=== PATIENT | female | born 1990 | race Caucasian/White ===

== ENCOUNTER 2017-06-05 20:07 | Emergency (ER) | payer MEDICAID, OTHER ==
[2017-06-05 20:13] VITALS: BP 123/59
[2017-06-05] MEDS ORDERED: Ondansetron 4 MG Tab.DIS PO ONE (20:33)
[2017-06-05] MEDS ORDERED: fentaNYL 100 MCG/2 ML SDV IM ONE (20:33)
--- NOTE | 2017-06-05 20:50 | EDM.PDOC ---
ED HPI GENERAL MEDICAL PROBLEM - General Chief Complaint: General Stated Complaint: LEFT ARM PAIN/NUMBNESS Time Seen by Provider: 06/05/17 20:20 Source of Information: Reports: Patient History Limitations: Reports: No Limitations - History of Present Illness INITIAL COMMENTS - FREE TEXT/NARRATIVE: This patient is a 26 year old patient that presents to the ER. Patient is 2 months post delivery. The patient reports that this morning she had a global headache with some nausea. She reports she has had this type of headache before and they resolve after some Tylenol and described as mild. Patient reports that also about 1pm she developed pain to the left of her neck, left postieor shoulder and pain with burning sensation down the left arm. She reports that she thinks her arm feels cool. The patient reports that after this pain developed she took Tylenol, her headache had resolved completely, but he arm pain did not. 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 Patient reports that was much more painful than what this pain is. The patient denies any known injury. The patient has control implant in the left arm. Patient reports that movement of the neck, left shoulder, and left arm increases her pain. The patient is able to abduct and adduct the left arm, but has increase in pain to the posterior shoulder with this motion. The pain is easily manipulated with ROM of the left shoulder. Pulses +2, cap refill <2 sec, sensory/motor function intact, neurovascular intact. Patient has no unilateral weaknesses. Stroke score 0. I will xray left shoulder whee pain location is located and US for DVT due to control, location of implant, and recent delivery. Onset: Today Onset Date: 06/05/17 Onset Time: 13:00 Duration: Hour(s): (7) Location: Reports: Upper Extremity, Left Severity: Moderate Improves with: Reports: None Worsens with: Reports: Movement Associated Symptoms: Reports: Headaches (Resolved earlier today from Tylenol). 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 Left Arm Pain Score (Numeric/FACES): 6 - Related Data Allergies Allergy/AdvReac Type Severity Reaction Status Date / Time gabapentin Allergy Severe Syncope Verified 06/05/17 20:15 amoxicillin [Amoxicillin] Allergy Intermediate Rash Verified 06/05/17 20:15 Penicillins Allergy Intermediate Rash Verified 06/05/17 20:15 Home Meds: Home Meds Albuterol [Proventil HFA] 2 puff INH BID PRN 09/17/16 [History] Etonogestrel [Nexplanon] 68 mg SQ ASDIRECTED 06/05/17 [History] Past Medical History - Past Health History Medical/Surgical History: Denies Medical/Surgical History HEENT History: Reports: Impaired Vision Respiratory History: Reports: Asthma 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 OB/BYN History: GRAVID 1 PARA 1 - Past Surgical History HEENT Surgical History: Reports: Oral Surgery Musculoskeletal Surgical History: Reports: Ganglion Cyst Social & Family History - Family History Family Medical History: Noncontributory - Tobacco Use Smoking Status *Q: Current Every Day Smoker Years of Tobacco use: 11 Packs/Tins Daily: 0.5 Used Tobacco, but Quit: No Second Hand Smoke Exposure: Yes - Caffeine Use Caffeine Use: Reports: Soda - Alcohol Use Days Per Week of Alcohol Use: 0 Number of Drinks Per Day: 0 Total Drinks Per Week: 0 - Recreational Drug Use Recreational Drug Use: No Drug Use in Last 12 Months: No - Living Situation & Occupation Living situation: Reports: with Family ED ROS GENERAL - Review of Systems Review Of Systems: See Below Constitutional: Reports: No Symptoms HEENT: Reports: No Symptoms Respiratory: Reports: No Symptoms Cardiovascular: Reports: No Symptoms Endocrine: Reports: No Symptoms GI/Abdominal: Reports: No Symptoms : Reports: No Symptoms Musculoskeletal: Reports: Neck Pain (left lateral ), Shoulder Pain (left posterior) Skin: Reports: No Symptoms Neurological: Reports: Headache (global, resolved. ) Psychiatric: Reports: No Symptoms Hematologic/Lymphatic: Reports: No Symptoms Immunologic: Reports: No Symptoms ED EXAM, GENERAL - Physical Exam Exam: See Below Exam Limited By: No Limitations General Appearance: Alert, WD/WN, No Apparent Distress Eye Exam: Bilateral Eye: EOMI, Normal Inspection, PERRL Ears: Normal External Exam, Normal Canal, Hearing Grossly Normal, Normal TMs Ear Exam: Bilateral Ear: Auricle Normal, Canal Normal, TM normal Nose: Normal Inspection, Normal Mucosa, No Blood Throat/Mouth: Normal Inspection, Normal Lips, Normal Teeth, Normal Gums, Normal Oropharynx, Normal Voice, No Airway Compromise Head: Atraumatic, Normocephalic Neck: Normal Inspection, Supple, Full Range of Motion (painful to the left lateral side and shoulder. ), Tender Lateral (left). No: Limited Range of Motion, Tender Midline Respiratory/Chest: No Respiratory Distress, Lungs Clear, Normal Breath Sounds, No Accessory Muscle Use Cardiovascular: Normal Peripheral Pulses, Regular Rate, Rhythm, No Edema, No Gallop, No JVD, No Murmur, No Rub Peripheral Pulses: 2+: Radial (L), Radial (R) Back Exam: Normal Inspection, Full Range of Motion. No: Decreased Range of Motion, Muscle Spasm, Paraspinal Tenderness, Vertebral Tenderness Extremities: Normal Inspection, No Pedal Edema, Normal Capillary Refill, Limited Range of Motion (due to pain. Able to do abduction and adduction, but with pain to left posterior shoulder. ). No: Pedal Edema, Slow Capillary Refill , Increased Warmth, Mottled, Pallor, Redness Neurological: Alert, Oriented, CN II-XII Intact, Normal Cognition, Normal Gait, No Motor/Sensory Deficits Psychiatric: Normal Affect, Normal Mood Skin Exam: Warm, Dry, Intact, Normal Color, No Rash Lymphatic: No Adenopathy Course - Vital Signs Last Recorded V/S: Last Vital Signs Temp 98.1 F 06/05/17 20:08 Pulse 86 06/05/17 20:08 Resp 16 06/05/17 20:08 BP 123/59 L 06/05/17 20:08 Pulse Ox 100 06/05/17 20:08 - Orders/Labs/Meds Orders: Active Orders 24 hr Category Date Time Status Shoulder Comp Lt [CR] Stat Exams 06/05/17 20:32 Taken VL Duplex Upr Ext Veins Ltd Lt [US] Stat Exams 06/05/17 20:29 Ordered Meds: Medications Discontinued Medications Generic Name Dose Route Start Last Admin Trade Name Freq PRN Reason Stop Dose Admin Cyclobenzaprine HCl 10 mg 06/05/17 21:44 Flexeril PO 06/05/17 21:45 ONETIME ONE Fentanyl 50 mcg 06/05/17 20:33 06/05/17 20:44 Sublimaze IM 06/05/17 20:34 50 mcg ONETIME ONE Administration Methylprednisolone Sodium Succinate 125 mg 06/05/17 21:44 Solu-Medrol IVPUSH 06/05/17 21:45 NOW STA Ondansetron HCl 4 mg 06/05/17 20:33 06/05/17 20:44 Zofran Odt PO 06/05/17 20:34 4 mg ONETIME ONE Administration - Radiology Interpretation Free Text/Narrative:: Left Shoulder: No fx, no dislocation. Left Upper Extremity US: NO DVT Departure - Departure Time of Disposition: 21:41 Disposition: Home, Self-Care 01 Condition: Good Clinical Impression: Cervical radiculopathy Shoulder sprain Qualifiers: Encounter type: initial encounter Shoulder sprain type: unspecified sprain Laterality: left Qualified Code(s): S43.402A - Unspecified sprain of left shoulder joint, initial encounter - Discharge Information Instructions: Cervical Radiculopathy, [id number], Shoulder Sprain Referrals: PCP,None [Primary Care Provider] - Forms: ED Department Discharge Additional Instructions: Followup with your primary care provider Return to the ER for worsening of condition or any emergent concerns Prednisone 20mg 1 pill twice a day for 5 days #10 no refill [place] 5/325mg 1-2 pills every 4-6 hours as needed for pain #15 no refill Flexeril 10mg 1 pill three times a day as needed for muscle spasm #15 no refill - My Orders Last 24 Hours: My Active Orders 06/05/17 20:29 VL Duplex Upr Ext Veins Ltd Lt [US] Stat 06/05/17 20:32 Shoulder Comp Lt [CR] Stat - Assessment/Plan Last 24 Hours: My Active Orders 06/05/17 20:29 VL Duplex Upr Ext Veins Ltd Lt [US] Stat 06/05/17 20:32 Shoulder Comp Lt [CR] Stat Plan: PLEASE SEE RN NOTE FOR PFSH.
[2017-06-05] MEDS ORDERED: Cyclobenzaprine 10 MG Tab PO ONE (21:44)
[2017-06-05] MEDS ORDERED: methylPREDNISolone Sodium Succinate 125 MG/2 ML SDV IM STA (21:47)
[2017-06-05] MEDS: methylPREDNISolone Sodium Succinate 125 MG/2 ML SDV IVPUSH STA ×2 (21:52→22:08)
== END 2017-06-05 22:04 | disposition home or self-care (01) ==
LOC: CC.ED 20:07
DX: S43.402A Unspecified sprain of left shoulder joint, initial encounter (principal); J45.909 Unspecified asthma, uncomplicated; M54.12 Radiculopathy, cervical region; F17.210 Nicotine dependence, cigarettes, uncomplicated; Z88.1 Allergy status to other antibiotic agents; Z88.0 Allergy status to penicillin; Z88.8 Allergy status to other drugs, medicaments and biological substances; X58.XXXA Exposure to other specified factors, initial encounter
CPT/HCPCS: 73030; 93971; 96372; 99284; A9270; J2930; J3010

== ENCOUNTER 2017-07-10 02:45 | Emergency (ER) | payer MEDICAID ==
[2017-07-10 04:50] VITALS: BP 142/78
--- NOTE | 2017-07-12 09:28 | EDM.PDOC ---
ED HPI GENERAL MEDICAL PROBLEM - General Chief Complaint: Fever Stated Complaint: fever Time Seen by Provider: 07/10/17 03:10 Source of Information: Reports: Patient History Limitations: Reports: No Limitations - History of Present Illness INITIAL COMMENTS - FREE TEXT/NARRATIVE: Patient presents to ER with concerns of a sore throat. Spiked a high fever of 103 as well. "feels like my throat is closing off". She started noting discomfort yesterday but wasn't as severe, running low grade temps. She has had mild sinus congestion. No ear pain. Feels her lymph nodes are swollen. Patient was concerned as she was worried the "closing off" would affect her breathing. Onset: Gradual Duration: Hour(s): Location: Reports: Head Quality: Reports: Throbbing Severity: Moderate Improves with: Reports: None Associated Symptoms: Reports: Fever/Chills, Headaches. 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 - Related Data Allergies Allergy/AdvReac Type Severity Reaction Status Date / Time gabapentin Allergy Severe Syncope Verified 07/10/17 04:44 amoxicillin [Amoxicillin] Allergy Intermediate Rash Verified 07/10/17 04:44 Penicillins Allergy Intermediate Rash Verified 07/10/17 04:44 Home Meds: Home Meds Albuterol [Proventil HFA] 2 puff INH BID PRN 09/17/16 [History] Etonogestrel [Nexplanon] 68 mg SQ ASDIRECTED 06/05/17 [History] Past Medical History - Past Health History Medical/Surgical History: Denies Medical/Surgical History HEENT History: Reports: Impaired Vision Respiratory History: Reports: Asthma 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 OB/BYN History: GRAVID 1 PARA 1 - Past Surgical History HEENT Surgical History: Reports: Oral Surgery Musculoskeletal Surgical History: Reports: Ganglion Cyst Social & Family History - Family History Family Medical History: Noncontributory - Tobacco Use Smoking Status *Q: Current Every Day Smoker Years of Tobacco use: 11 Packs/Tins Daily: 0.5 Used Tobacco, but Quit: No Second Hand Smoke Exposure: Yes - Caffeine Use Caffeine Use: Reports: Soda - Alcohol Use Days Per Week of Alcohol Use: 0 Number of Drinks Per Day: 0 Total Drinks Per Week: 0 - Recreational Drug Use Recreational Drug Use: No Drug Use in Last 12 Months: No - Living Situation & Occupation Living situation: Reports: with Family ED ROS ENT - Review of Systems Review Of Systems: See Below Constitutional: Reports: Fever, Chills, Malaise, Weakness. Denies: Decreased Appetite HEENT: Reports: Throat Pain, Throat Swelling. Denies: Ear Pain, Rhinitis, Sinus Problem Respiratory: Denies: Shortness of Breath, Wheezing, Cough Cardiovascular: Denies: Chest Pain, Edema, Lightheadedness Endocrine: Reports: Fatigue GI/Abdominal: Denies: Abdominal Pain, Constipation, Diarrhea, Nausea, Vomiting : Reports: No Symptoms Musculoskeletal: Reports: No Symptoms Skin: Reports: No Symptoms Neurological: Reports: No Symptoms ED EXAM, ENT - Physical Exam Exam: See Below Exam Limited By: No Limitations General Appearance: Alert, WD/WN, No Apparent Distress Ears: Normal External Exam, Normal TMs Nose: Normal Inspection, Normal Mucousa, No Blood Mouth/Throat: Tonsillar Erythema, Tonsillar Exudates, Tonsillar Swelling Head: Normocephalic Neck: Normal Inspection, Supple, Lymphadenopathy (L), Lymphadenopathy (R) Respiratory/Chest: No Respiratory Distress, Lungs Clear, Normal Breath Sounds Cardiovascular: Regular Rate, Rhythm GI/Abdominal: Normal Bowel Sounds, Soft, Non-Tender Extremities: Normal Inspection, Normal Capillary Refill Neurological: Alert, Oriented Psychiatric: Normal Affect, Normal Mood Skin: Warm, Dry Course - Vital Signs Last Recorded V/S: Last Vital Signs Temp 100.3 F 07/10/17 04:46 Pulse 122 H 07/10/17 04:46 Resp 18 07/10/17 04:46 BP 142/78 H 07/10/17 04:46 Pulse Ox 98 07/10/17 04:46 Departure - Departure Time of Disposition: 04:00 Disposition: Home, Self-Care 01 Condition: Fair Clinical Impression: Tonsillitis - Discharge Information Referrals: Provider,Unknown [Ordering Only Provider] - Forms: ED Department Discharge Additional Instructions: 1. Push fluids 2. Alternate tylenol and ibuprofen for fever or discomfort. 3. Ceftin as directed 4. Notify us if not seeing improvement in a 2-3 days\\ 5. Contact us with any questions
== END 2017-07-10 03:35 | disposition home or self-care (01) ==
LOC: CC.ED 02:45
DX: J03.90 Acute tonsillitis, unspecified (principal); J45.909 Unspecified asthma, uncomplicated; F17.210 Nicotine dependence, cigarettes, uncomplicated; Z88.0 Allergy status to penicillin; Z88.1 Allergy status to other antibiotic agents; Z88.8 Allergy status to other drugs, medicaments and biological substances
CPT/HCPCS: 96372; 99282

== ENCOUNTER 2019-01-14 17:39 | Emergency (ER) | payer OTHER, MEDICAID ==
[2019-01-14 18:13] VITALS: BP 132/87
[2019-01-14 18:19] LABS: CHLORIDE,CL 103 mEq/L (98-106); SODIUM,NA 139 mEq/L (136-145)
--- NOTE | 2019-01-14 18:20 | EDM.PDOC ---
ED HPI GENERAL MEDICAL PROBLEM - General Chief Complaint: Neuro Symptoms/Deficits Stated Complaint: FAINTED EARLIER/NOW DIZZY Time Seen by Provider: 01/14/19 18:12 Source of Information: Reports: Patient History Limitations: Reports: No Limitations - History of Present Illness INITIAL COMMENTS - FREE TEXT/NARRATIVE: Cuca is a 28 year old female who presents to the ED with c/o "just feeling weird." She reports she was working out with her outdoor fitness trainer this morning and "passed out." Sleep Medicine Physician reports she was alert and talking throughout, but she does not remember this. She reports this was at 0930 this morning. She reports that since that time she has just "felt weird." She feels like everything is moving slowly and she doesn't remember the day. She reports she hasn't eaten or drank much today. Does have somewhat of an upset stomach. She denies any nausea , vomiting, diarrhea, dysuria, urinary frequency/urgency, loss of consciousness. No history of seizures. Significant other reports she has just seemed "down in the dumps all day" but denies noticing any confusion. Is very anxious and tearful at time of examination. Onset: Today Onset Date: 01/14/19 Onset Time: 09:30 Location: Reports: Abdomen Associated Symptoms: Reports: Confusion, Loss of Appetite, Malaise, Weakness. Denies: Nausea/Vomiting Abdominal Pain Score (Numeric/FACES): 2 - Related Data Allergies Allergy/AdvReac Type Severity Reaction Status Date / Time gabapentin Allergy Severe Syncope Verified 01/14/19 17:57 amoxicillin [Amoxicillin] Allergy Intermediate Rash Verified 01/14/19 17:57 Penicillins Allergy Intermediate Rash Verified 01/14/19 17:57 Home Meds: Home Meds Albuterol [Proventil HFA] 2 puff INH BID PRN 09/17/16 [History] Etonogestrel [Nexplanon] 68 mg SQ ASDIRECTED 06/05/17 [History] L.acidoph,Paracasei, B.lactis [Probiotic] 1 each PO DAILY 01/14/19 [History] Nitrofurantoin Monohyd/M-Cryst [Macrobid 100 mg Capsule] 100 mg PO BID #10 capsule 01/14/19 [Rx] busPIRone [Buspar] 15 mg PO BID 01/14/19 [History] Past Medical History - Past Health History Medical/Surgical History: Denies Medical/Surgical History HEENT History: Reports: Impaired Vision Respiratory History: Reports: Asthma 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 COLORER HIDES AND SKINS History: GRAVID 1 PARA 1 - Past Surgical History HEENT Surgical History: Reports: Oral Surgery Musculoskeletal Surgical History: Reports: Ganglion Cyst Social & Family History - Family History Family Medical History: Noncontributory - Tobacco Use Smoking Status *Q: Current Every Day Smoker Years of Tobacco use: 14 Packs/Tins Daily: 0.5 - Caffeine Use Caffeine Use: Reports: Coffee, Energy Drinks, Soda - Recreational Drug Use Recreational Drug Use: No - Living Situation & Occupation Living situation: Reports: with Family ED ROS GENERAL - Review of Systems Review Of Systems: ROS reveals no pertinent complaints other than HPI. ED EXAM, NEURO - Physical Exam Exam: See Below Exam Limited By: No Limitations General Appearance: Alert, WD/WN, Anxious Eye Exam: Bilateral Eye: EOMI, Normal Fundi, Normal Inspection, PERRL Head Exam: Atraumatic, Normocephalic Neck: Normal Inspection, Supple, Non-Tender, Full Range of Motion Respiratory/Chest: No Respiratory Distress, Lungs Clear, Normal Breath Sounds, No Accessory Muscle Use, Chest Non-Tender Cardiovascular: Normal Peripheral Pulses, Regular Rate, Rhythm, No Edema, No Gallop, No JVD, No Murmur, No Rub GI/Abdominal: Normal Bowel Sounds, Soft, Non-Tender, Tender (LUQ) Neurological: Alert, Normal Dorsiflexion, CN II-XII Intact, Normal Plantar Flexion, Normal Gait, Normal Reflexes, No Motor/Sensory Deficits, Oriented x 3 Back Exam: Normal Inspection, Full Range of Motion. No: CVA Tenderness (L), CVA Tenderness (R) Extremities: Normal Inspection, Normal Range of Motion, Non-Tender, No Pedal Edema, Normal Capillary Refill Psychiatric: Anxious, Tearful Skin Exam: Warm, Dry, Intact, Normal Color, No Rash, Other (atopic dermatitis to bilateral wrists and lower extremities) Course - Vital Signs Last Recorded V/S: Last Vital Signs Temp 99.3 F 01/14/19 17:45 Pulse 90 01/14/19 17:45 Resp 16 01/14/19 17:45 BP 132/87 01/14/19 18:13 Pulse Ox 99 01/14/19 17:45 - Orders/Labs/Meds Orders: Active Orders 24 hr Category Date Time Status Head wo Cont [CT] Stat Exams 01/14/19 17:55 Taken CULTURE URINE [RM] Stat Lab 01/14/19 18:16 Results Labs: Laboratory Tests 01/14/19 01/14/19 01/14/19 Range/Units 18:03 18:03 18:03 WBC 10.7 H (5.0-10.0) 10^3/uL RBC 5.30 (4.00-5.50) 10^6/uL Hgb 15.4 (12.0-16.0) g/dL Hct 45.0 (37.0-47.0) % MCV 84.9 (82.0-94.0) fL MCH 29.1 (27.0-32.0) pg MCHC 34.2 (33.0-38.0) g/dL RDW Coeff of Jeronimo 13.3 (11.0-15.0) % Plt Count 263 (150-400) 10^3/uL Neut % (Auto) 62.4 (35-85) % Lymph % (Auto) 28.7 (10-55) % [place] % (Auto) 7.5 (0-16) % Eos % (Auto) 1.0 (0-5) % Baso % (Auto) 0.4 (0-3) % Neut # (Auto) 6.64 (1.80-7.00) 10^3/uL Lymph # (Auto) 3.06 (1.00-4.80) 10^3/uL [place] # (Auto) 0.80 (0.00-0.80) 10^3/uL Eos # (Auto) 0.11 (0.00-0.45) 10^3/uL Baso # (Auto) 0.04 10^3/uL Sodium 139 (136-145) mEq/L Potassium 4.5 (3.5-5.0) mEq/L Chloride 103 (98-106) mEq/L Carbon Dioxide 29 (21-32) mmol/L BUN 16 D (7-18) mg/dL Creatinine 0.8 D (0.6-1.0) mg/dL Est Cr Clr Drug Dosing 91.21 mL/min Estimated GFR (MDRD) > 60 (>=60) mL/min Glucose 94 (75-99) mg/dL Calcium 9.6 (8.4-10.1) mg/dL Total Bilirubin 0.3 (0.0-1.0) mg/dL AST 15 (15-37) U/L ALT 25 (12-78) U/L Alkaline Phosphatase 71 (46-116) U/L C-Reactive Protein < 0.2 L (0.2-0.8) mg/dL Total Protein 7.9 (6.4-8.2) g/dL Albumin 4.0 (3.4-5.0) g/dL HCG, Qual Urine Color (YELLOW) Urine Appearance (CLEAR) Urine pH (4.5-8.0) Ur Specific [place] (1.003-1.020) Urine Protein (NEGATIVE) mg/dL Urine Glucose (UA) (NEGATIVE) mg/dL Urine Ketones (NEGATIVE) mg/dL Urine Occult Blood (NEGATIVE) Urine Nitrite (NEGATIVE) Urine Bilirubin (NEGATIVE) Urine Urobilinogen (0.2-1.0) EU/dL Ur Leukocyte Esterase (NEGATIVE) Urine RBC (0-5) /HPF Urine WBC (0-5) /HPF Ur Squamous Epith Cells (NOT SEEN) /HPF Urine Bacteria (NOT SEEN) /HPF 01/14/19 01/14/19 Range/Units 18:03 18:16 WBC (5.0-10.0) 10^3/uL RBC (4.00-5.50) 10^6/uL Hgb (12.0-16.0) g/dL Hct (37.0-47.0) % MCV (82.0-94.0) fL MCH (27.0-32.0) pg MCHC (33.0-38.0) g/dL RDW Coeff of Jeronimo (11.0-15.0) % Plt Count (150-400) 10^3/uL Neut % (Auto) (35-85) % Lymph % (Auto) (10-55) % [place] % (Auto) (0-16) % Eos % (Auto) (0-5) % Baso % (Auto) (0-3) % Neut # (Auto) (1.80-7.00) 10^3/uL Lymph # (Auto) (1.00-4.80) 10^3/uL [place] # (Auto) (0.00-0.80) 10^3/uL Eos # (Auto) (0.00-0.45) 10^3/uL Baso # (Auto) 10^3/uL Sodium (136-145) mEq/L Potassium (3.5-5.0) mEq/L Chloride (98-106) mEq/L Carbon Dioxide (21-32) mmol/L BUN (7-18) mg/dL Creatinine (0.6-1.0) mg/dL Est Cr Clr Drug Dosing mL/min Estimated GFR (MDRD) (>=60) mL/min Glucose (75-99) mg/dL Calcium (8.4-10.1) mg/dL Total Bilirubin (0.0-1.0) mg/dL AST (15-37) U/L ALT (12-78) U/L Alkaline Phosphatase (46-116) U/L C-Reactive Protein (0.2-0.8) mg/dL Total Protein (6.4-8.2) g/dL Albumin (3.4-5.0) g/dL HCG, Qual Negative Urine Color Yellow (YELLOW) Urine Appearance Slightly cloudy (CLEAR) Urine pH 7.0 (4.5-8.0) Ur Specific [place] 1.010 (1.003-1.020) Urine Protein Negative (NEGATIVE) mg/dL Urine Glucose (UA) Negative (NEGATIVE) mg/dL Urine Ketones Negative (NEGATIVE) mg/dL Urine Occult Blood Moderate H (NEGATIVE) Urine Nitrite Negative (NEGATIVE) Urine Bilirubin Negative (NEGATIVE) Urine Urobilinogen 0.2 (0.2-1.0) EU/dL Ur Leukocyte Esterase Small H (NEGATIVE) Urine RBC 0-5 (0-5) /HPF Urine WBC 10-20 H (0-5) /HPF Ur Squamous Epith Cells Few H (NOT SEEN) /HPF Urine Bacteria Few H (NOT SEEN) /HPF Meds: Medications Discontinued Medications Generic Name Dose Route Start Last Admin Trade Name Freq PRN Reason Stop Dose Admin Ceftriaxone Sodium 1 gm 01/14/19 18:45 01/14/19 18:51 Rocephin IVPUSH 1 gm Q24H JENI Administration Sodium Chloride 1,000 mls @ 999 mls/hr 01/14/19 18:21 01/14/19 18:40 Normal Saline IV 04/15/19 19:21 999 mls/hr .BOLUS ONE Administration - Radiology Interpretation Free Text/Narrative:: Negative for acute changes. CT Results Date: 01/14/19 CT Results Time: 18:43 - Re-Assessments/Exams Free Text/Narrative Re-Assessment/Exam: 01/14/19 18:37 Discussed lab results with patient and significant other. UA is positive. Will give patient fluid bolus and 1 G [address]cephin. Await[address] CT results. 01/14/19 18:[address] results with patient. Head CT is negative for acute findings. Departure - Departure Time of Disposition: 18:45 Disposition: Home, Self-Care 01 Condition: Good Clinical Impression: Anxiety UTI (urinary tract infection) Qualifiers: Urinary tract infection type: acute cystitis Hematuria presence: without hematuria Qualified Code(s): N30.00 - Acute cystitis without hematuria - Discharge Information *PRESCRIPTION DRUG MONITORING PROGRAM REVIEWED*: Not Applicable *COPY OF PRESCRIPTION DRUG MONITORING REPORT IN PATIENT LAURIE: Not Applicable Prescriptions: Nitrofurantoin Monohyd/M-Cryst [Macrobid 100 mg Capsule] 100 mg PO BID #10 capsule Instructions: Urinary Tract Infection, Adult, [id number] Referrals: Bobby Monroe MD [Primary Care Provider] - Forms: ED Department Discharge Additional Instructions: 1) Macrobid twice daily x 5 days. Script sent to [facility] can be picked up and started tomorrow. 2) Rest and push fluids 3) No strenuous activity until feeling better 4) Follow up with PCP if symptoms worsen or do not improve 5) Return to ED for emergent needs - Problem List Review Problem List Initiated/Reviewed/Updated: Yes - My Orders Last 24 Hours: My Active Orders 01/14/19 17:55 Head wo Cont [CT] Stat 01/14/19 18:16 CULTURE URINE [RM] Stat - Assessment/Plan Last 24 Hours: My Active Orders 01/14/19 17:55 Head wo Cont [CT] Stat 01/14/19 18:16 CULTURE URINE [RM] Stat Plan: Patient recieved 1 G Rocephin and 1 L fluid bolus. Was feeling better at time of discharge. Discussed that we will notify patient of urine culture results once available. Did advise her to follow up with her PCP for ER recheck, sooner if symptoms worsen or do not improve. Patient verbalized understanding and was discharged from facility in satisfactory condition.
[2019-01-14] MEDS ORDERED: Sodium Chloride 0.9% 1,000 ML IV ONE (18:21)
[2019-01-14] MEDS ORDERED: cefTRIAXone 1 GM Vial IVPUSH SCH (18:45)
== END 2019-01-14 19:42 | disposition home or self-care (01) ==
LOC: CC.ED 17:39
DX: N30.00 Acute cystitis without hematuria (principal); F41.9 Anxiety disorder, unspecified; R41.0 Disorientation, unspecified; J45.909 Unspecified asthma, uncomplicated; F17.210 Nicotine dependence, cigarettes, uncomplicated; Z88.8 Allergy status to other drugs, medicaments and biological substances; Z79.899 Other long term (current) drug therapy
CPT/HCPCS: 36415; 70450; 80053; 81001; 84703; 85025; 86140; 87086; 93005; 96361; 96374; 99284; J0696; J7030

== ENCOUNTER 2022-01-29 16:45 | Emergency (ER) | payer OTHER ==
[2022-01-29 17:41] VITALS: BP 125/91; PULSE 72
[2022-01-29 17:44] LABS: AMPHETAMINES,URINE NEGATIVE (NEGATIVE); BARBITURATES,URINE NEGATIVE (NEGATIVE); BENZODIAZEPINE,URINE NEGATIVE (NEGATIVE); MDMA (ECSTASY), URINE NEGATIVE (NEGATIVE); METHADONE,URINE NEGATIVE (NEGATIVE); METHAMPHETAMINES,URINE NEGATIVE (NEGATIVE); OPIATES,URINE NEGATIVE (NEGATIVE); OXYCODONE,URINE NEGATIVE (NEGATIVE); PHENCYCLIDINE,URINE NEGATIVE (NEGATIVE); TCA,URINE NEGATIVE (NEGATIVE)
[2022-01-29 18:00] LABS: CHLORIDE,CL 103 mEq/L (98-106); SODIUM,NA 141 mEq/L (136-145)
== END 2022-01-29 18:52 | disposition home or self-care (01) ==
LOC: CC.ED 16:45
DX: F32.A Depression, unspecified (principal); F41.9 Anxiety disorder, unspecified; F43.9 Reaction to severe stress, unspecified; R41.0 Disorientation, unspecified; I10 Essential (primary) hypertension; Z88.0 Allergy status to penicillin; Z88.5 Allergy status to narcotic agent; Z72.0 Tobacco use
CPT/HCPCS: 36415; 70450; 71046; 80053; 80305-QW; 80307; 81003; 81025; 84484; 85025; 86140; 93005; 99284; 99285-25